=== PATIENT | male | born 1995 | race Asian ===

== ENCOUNTER 2019-10-11 17:28 | Emergency (ER) | payer BC, MEDICAID ==
[~2019-10-11] VITALS: Ht 175.3 cm; Wt 74.8 kg
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
--- NOTE | 2019-10-11 17:55 | NUR ---
keo at bedside for x-ray
[2019-10-11 18:35] VITALS: BP 138/81
--- NOTE | 2019-10-11 18:35 | NUR ---
Patient discharged to home in stable condition. Written and verbal after care instructions given. Patient verbalizes understanding of instruction.
== END 2019-10-11 18:35 | disposition home or self-care (01) ==
LOC: ER 17:28
DX: M25.512 Pain in left shoulder (principal); M54.2 Cervicalgia; V49.59XA Passenger injured in collision with other motor vehicles in traffic accident, initial encounter; Y93.89 Activity, other specified; Y92.488 Other paved roadways as the place of occurrence of the external cause; Y99.8 Other external cause status
CPT/HCPCS: 73030-TC